=== PATIENT | female | born 1995 | race Caucasian/White ===

== ENCOUNTER 2018-10-03 14:03 | Emergency (ER) | payer OTHER ==
[2018-10-03 14:22] VITALS: BP 126/77
--- NOTE | 2018-10-03 15:20 | ED Physician Documentation ---
PD HPI CHEST PAIN - Stated complaint Stated Complaint: CHEST PRESSURE/DIFFICUTLY BREATHING - Chief complaint Chief Complaint: Cardiac - History obtained from History obtained from: Patient - History of Present Illness Timing - onset: Other (For the last 3 weeks she has had intermittent sharp bandlike chest pain around the lower chest that is worse with deep breathing. She has no pain right now. She has a dry productive cough with it. No pedal edema or calf pain. No recent travel. She is not on control.) Review of Systems Constitutional: denies: Fever, Chills Throat: denies: Dental pain / toothache, Sore throat Cardiac: reports: Chest pain / pressure. denies: Palpitations, Pedal edema, Calf pain Respiratory: reports: Dyspnea. denies: Cough, Hemoptysis, Wheezing PD PAST MEDICAL HISTORY - Present Medications Home Medications: Ambulatory Orders Medication Instructions Recorded Confirmed predniSONE [Deltasone] 20 mg PO DAILY #7 tablet 10/03/18 - Allergies Allergies/Adverse Reactions: Allergies Allergy/AdvReac Type Severity Reaction Status Date / Time No Known Drug Allergies Allergy Verified 10/03/18 14:22 PD ED PE NORMAL - Vitals Vital signs reviewed: Yes - General General: Alert and oriented X 3, No acute distress - HEENT HEENT: PERRL, EOMI - Neck Neck: Supple, no meningeal sign, No bony TTP - Cardiac Cardiac: RRR, No murmur - Respiratory Respiratory: No respiratory distress, Other (v mild B wheezes) - Abdomen Abdomen: Non tender - Extremities Extremities: No edema, No calf tenderness / cord - Neuro Neuro: Alert and oriented X 3, Normal speech Results - Vitals Vitals: Vital Signs - 24 hr 10/03/18 14:18 Temperature 36.8 C Heart Rate 78 Respiratory 16 Rate Blood Pressure 126/77 O2 Saturation 96 Oxygen O2 Source Room air - EKG (time done) 1405 Rate: Rate (enter#) (80) Rhythm: NSR [place]: Normal Intervals: Normal [place] QRS: Normal Ischemia: Normal ST segments Computer interpretation: Agree with computer - Rads (name of study) 2v chest Radiology: EMP read contemporaneously (normal) PD MEDICAL DECISION MAKING - ED course ED course: I considered pulmonary embolism in this patient. Clinically the pretest probability of pulmonary embolism is less than 15%. I applied to the PERC rules as follows: The patient's age is under 50, heart rate less than 100, oxygen saturation greater than 94%, the patient does not have a history of DVT or PE. Patient has no recent trauma or surgery. The patient has no hemoptysis. The patient is not on exogenous estrogens. The patient does not have clinical signs suggesting DVT. As such the patient ruled out for pulmonary embolism by PERC criteria. HEARt score zero Departure - Departure Disposition: 01 Home, Self Care Clinical Impression: Chest pain Condition: Good Record reviewed to determine appropriate education?: Yes Instructions: ED Chest Pain NonCardiac Prescriptions: predniSONE [Deltasone] 20 mg PO DAILY #7 tablet Comments: As discussed, given the wheezing in association with potential allergies I think that is the cause. Your chest x-ray and EKG are normal. Return for new or worsening symptoms and follow-up with your doctor. The steroids should help.
--- NOTE | 2018-10-03 16:01 | XRAY Report ---
Reason: chest pain Procedure Date: 10/03/2018 Accession Number: [id number] / [id number] Procedure: XR - Chest 2 View X-Ray CPT Code: 54371 FULL RESULT: EXAM: CHEST RADIOGRAPHY EXAM DATE: 10/03/2018 03:32 PM. CLINICAL HISTORY: Chest pain. COMPARISON: None. TECHNIQUE: 2 views. FINDINGS: Lungs/Pleura: No focal opacities evident. No pleural effusion. No pneumothorax. Normal volumes. Mediastinum: Heart and mediastinal contours are unremarkable. Other: None. IMPRESSION: No radiographic evidence of acute cardiopulmonary disease. RADIA
== END 2018-10-03 16:10 | disposition home or self-care (01) ==
LOC: ED 14:03
DX: R07.9 Chest pain, unspecified (principal)
CPT/HCPCS: 71046; 93005; 99283

== ENCOUNTER 2018-11-14 22:12 | Emergency (ER) | payer OTHER ==
--- NOTE | 2018-11-14 23:35 | ED Physician Documentation ---
PD HPI UPPER EXT INJURY - Stated complaint Stated Complaint: LT SHOULDER INJ - Chief complaint Chief Complaint: Ext Problem - History obtained from History obtained from: Patient - History of Present Illness Location: Left, Shoulder Where injury occurred: Other Timing - onset: Today Timing - duration: Hours Timing - details: Abrupt onset Pain level now: 6 Improved by: Rest Worsened by: Moving Associated symptoms: Tingling. No: Weakness, Numbness, Swelling, Discolored Similar symptoms before: Has not had sx before Recently seen: Not recently seen - Additonal information Additional information: Patient complains of left shoulder pain, sudden onset earlier today when bench pressing. Patient felt a sudden popping sensation accompanied by sudden onset of shoulder pain. Pain is worse with left shoulder movement as well as turning head towards left. Review of Systems Musculoskeletal: reports: Joint pain. denies: Neck pain, Joint swelling Neurologic: denies: Focal weakness, Numbness PD PAST MEDICAL HISTORY - Past Medical History Past Medical History: No - Past Surgical History Past Surgical History: No - Present Medications Home Medications: Ambulatory Orders Medication Instructions Recorded Confirmed Hydrocodone/Acetaminophen 1 - 2 each PO Q6H PRN #14 tablet 11/14/18 [Hydrocodon-Acetaminophen 5-325] - Allergies Allergies/Adverse Reactions: Allergies Allergy/AdvReac Type Severity Reaction Status Date / Time No Known Drug Allergies Allergy Verified 11/14/18 22:25 - Social History Does the pt smoke?: No Smoking Status: Never smoker Does the pt drink ETOH?: No Does the pt have substance abuse?: No - Immunizations Immunizations are current?: Yes - POLST Patient has POLST: No PD ED PE NORMAL - Vitals Vital signs reviewed: Yes - General General: Alert and oriented X 3, No acute distress, Well developed/nourished - Neck Neck: No bony TTP - Derm Derm: Normal color, Warm and dry - Neuro Neuro: No motor deficit, No sensory deficit PD ED PE EXPANDED - Extremities Extremities: Limited ROM (left shoulder: limited internal rotation). No: Deformity, Tenderness, Swelling Results - Vitals Vitals: Oxygen O2 Source Room air PD MEDICAL DECISION MAKING - ED course Complexity details: considered differential, d/w patient Departure - Departure Disposition: 01 Home, Self Care Clinical Impression: Left shoulder strain Condition: Good Health Concerns: left shoulder pain Plan of Treatment: sling, analgesics as prescribed, rest Care Goals: pain control Assessment: see diagnosis Instructions: ED Sprain Shoulder, ED Sling Follow-Up: CONSUEL[facility] Cook [Provider Group] Prescriptions: Hydrocodone/Acetaminophen [Hydrocodon-Acetaminophen 5-325] 1 - 2 each PO Q6H PRN #14 tablet PRN Reason: pain Discharge Date/Time: 11/15/18 00:06
[2018-11-14] MEDS ORDERED: HYDROcod/ACET 5/325 Prepack 4 PO STA (23:51)
[2018-11-15 00:04] VITALS: BP 142/88
== END 2018-11-15 00:06 | disposition home or self-care (01) ==
LOC: ED 22:12
DX: S46.912A Strain of unspecified muscle, fascia and tendon at shoulder and upper arm level, left arm, initial encounter (principal); X50.0XXA Overexertion from strenuous movement or load, initial encounter; X50.9XXA Other and unspecified overexertion or strenuous movements or postures, initial encounter; Y93.B3 Activity, free weights; Y92.39 Other specified sports and athletic area as the place of occurrence of the external cause
CPT/HCPCS: 99283